=== PATIENT | male | born 1985 | race Caucasian/White ===

== ENCOUNTER → 2017-01-19 | Outpatient (CLI) | payer OTHER ==
--- NOTE | 2017-01-19 08:36 | REP ---
CT INTERNAL AUDITORY CANALS WITHOUT CONTRAST: HISTORY: Left sensorineural hearing loss. The internal auditory canals, cochlea, vestibules, and semicircular canals are normal in appearance. The ossicles are normal in configuration and position. The scutum and tegmen are intact. The middle ear cavities and mastoid air cells are clear. Minimal mucosal thickening is present in the left maxillary sinus. The nasopharynx is normal in appearance. IMPRESSION: Normal CT internal auditory canals. Signed by Kyle Hedrick MD 01/19/2017 08:38 A
== END ==
LOC: M RAD 07:21
PROVIDERS: ATTEND Otolaryngology
DX: H90.42 Sensorineural hearing loss, unilateral, left ear, with unrestricted hearing on the contralateral side (principal)